=== PATIENT | female | born 1945 | race Caucasian/White ===

== ENCOUNTER 2020-04-29 07:03 | Inpatient (IN) ==
[2020-04-22 17:09] LABS: Appearance,Urine CLEAR; Bilirubin,Urine NEG (NEG); Color,Urine YELLOW; Culture Indicated,Urine NO; Glucose,Urine (UA) NEGATIVE (NEG); Ketones,Urine NEG (NEG); Leukocyte Esterase,Urine NEG /uL (NEG); Nitrate,Urine NEG (NEG); Protein,Urine NEG (NEG); Specific Gravity,Urine 1.015 (1.000-1.035); Urine Blood NEG mg/dL (<0.03)
[2020-04-22 19:58] LABS: Basophils # (Auto) 0.03 K/mcL (0.00-0.30); Basophils % (Auto) 0.6 % (0.0-2.0); Eosinophils # (Auto) 0.13 K/mcL (0.00-0.70); Eosinophils % (Auto) 2.5 % (0.0-7.0); Hematocrit 26.6 % (34.1-44.9); Hemoglobin 9.4 g/dL (11.2-15.7); Lymphocytes # (Auto) 1.39 K/mcL (1.50-4.80); Lymphocytes % (Auto) 27.2 % (15.5-49.0); Mean Cell Volume 104.3 fL (80.0-100.0); Mean Corpuscular HGB Conc 35.3 g/dL (31.0-36.0); Mean Platelet Volume 10.6 fL (7.4-10.4); Monocytes # (Auto) 0.34 K/mcL (0.10-0.90); Monocytes % (Auto) 6.7 % (1.0-12.0); Platelet Count 248 K/mcL (140-440); RBC 2.55 M/mcL (3.59-5.38); WBC 5.1 K/mcL (4.50-11.00)
[2020-04-22 20:00] LABS: Blood Urea Nitrogen 17 mg/dl (8-23); Calcium 9.4 mg/dl (8.6-10.4); Carbon Dioxide 25 mmol/L (22-30); Chloride 101 mmol/L (96-108); Glomerular Filtration Rate 89; Glucose 130 mg/dL (70-105)
[~2020-04-29 07:03] MED LIST: 0.9 % SODIUM CHLORIDE 9 ML, KETOROLAC 30 MG, ROPIVACAINE HCL/PF 49.5 ML, EPINEPHrine 0.... IJ SCH; ACETAMINOPHEN 500 MG TABLET PO SCH; CELECOXIB 200 MG CAPSULE PO SCH; IPRATROPIUM/ALBUTEROL 3 ML AMPUL.NEB NEB PRN; PREGABALIN 75 MG CAPSULE PO SCH; SCOPOLAMINE 1 PATCH PATCH TOPICAL PRN; ceFAZolin 2 GM in DEXTROSE 5% IN WATER 50 ML IV SCH; oxyCODONE 10 MG TAB.ER.12H PO SCH
[2020-04-29] MEDS ORDERED: 0.9 % SODIUM CHLORIDE 250 ML IV SCH (07:30)
[2020-04-29] MEDS ORDERED: ROPIVACAINE HCL/PF 20 ML VIAL IJ ONE (09:16)
[2020-04-29] MEDS ORDERED: fentaNYL 250 MCG/5 ML VIAL IV ONE (09:16)
[2020-04-29] MEDS ORDERED: PHENYLEPHRINE 10 MG/ML VIAL IV ONE (09:16)
[2020-04-29] MEDS ORDERED: SUCCINYLCHOLINE 20 MG/ML ML IV ONE (09:16)
[2020-04-29] MEDS ORDERED: PROPOFOL 200 MG/20 ML VIAL IV ONE (09:16)
[2020-04-29] MEDS ORDERED: HYDROmorphone 1 MG/ML SYRINGE IV ONE (09:16)
[2020-04-29] MEDS ORDERED: TRANEXAMIC ACID 1,000 MG/10 ML VIAL IV ONE ×3 (09:16→12:09)
[2020-04-29] MEDS ORDERED: KETAMINE 100 MG/ML ML IV ONE (09:16)
[2020-04-29] MEDS ORDERED: DEXAMETHASONE 10 MG/ML VIAL IV ONE (09:16)
[2020-04-29] MEDS ORDERED: ONDANSETRON 4 MG/2 ML VIAL IV ONE (09:16)
[2020-04-29] MEDS ORDERED: LIDOCAINE HCL/PF 100 MG/5 ML SYRINGE IV ONE (09:16)
[2020-04-29] MEDS ORDERED: GLYCOPYRROLATE 0.2 MG/ML VIAL IV ONE (09:16)
[2020-04-29] MEDS ORDERED: GENTAMICIN SULFATE 800 MG/20 ML VIAL IR ONE (09:46)
[2020-04-29] MEDS ORDERED: NALOXONE HCL 0.4 MG/ML VIAL IV PRN (10:09)
[2020-04-29] MEDS ORDERED: IPRATROPIUM/ALBUTEROL 3 ML AMPUL.NEB NEB PRN (10:09)
[2020-04-29] MEDS ORDERED: LACTATED RINGERS 250 ML IV PRN (10:09)
[2020-04-29] MEDS ORDERED: FLUMAZENIL 0.1 MG/ML ML IV PRN (10:15)
[2020-04-29] MEDS ORDERED: LACTATED RINGERS 1,000 ML IV SCH (10:15)
[2020-04-29] MEDS ORDERED: METHOCARBAMOL 1,000 MG/10 ML VIAL IV PRN (10:15)
[2020-04-29] MEDS ORDERED: METOPROLOL TARTRATE 5 MG/5 ML VIAL IV PRN (10:15)
[2020-04-29] MEDS ORDERED: ACETAMINOPHEN 325 MG TABLET PO PRN (10:37)
[2020-04-29] MEDS ORDERED: HYDROmorphone 1 MG/ML SYRINGE IV PRN (10:37)
[2020-04-29] MEDS ORDERED: BISACODYL 10 MG SUPP.RECT PR PRN (10:37)
[2020-04-29] MEDS ORDERED: FLEETS ADULT ENEMA PR PRN (10:37)
[2020-04-29] MEDS ORDERED: BENZOCAINE/MENTHOL 1 LOZENGE PO PRN (10:37)
[2020-04-29] MEDS ORDERED: oxyCODONE/APAP 5/325MG TABLET PO PRN (10:37)
[2020-04-29] MEDS ORDERED: POLYETHYLENE GLYCOL 3350 17 GM PACKET PO PRN (10:37)
[2020-04-29] MEDS ORDERED: MAGNESIUM HYDROXIDE 30 ML ORAL.SUSP PO PRN (10:37)
[2020-04-29] MEDS ORDERED: TEMAZEPAM 15 MG CAPSULE PO PRN (10:37)
--- NOTE | 2020-04-29 10:37 | Brief Operative Note ---
Date of procedure: 04/29/20 Pre-op diagnosis: Right shoulder rca Post-op diagnosis: same Procedure: Right shoulder reverse tsa with bicep tenodesis Grafts/Implants: Yes Anesthesia: GETA Complications Description: 04/29/20 10:36 none Surgeon: Luciano Bourgeois Steel Die Printer: Ervin Lemon Estimated blood loss (cc): 120 Specimens Removed/Pathology: none sent Condition: stable Disposition: PACU
--- NOTE | 2020-04-29 10:49 | Discharge Summary ---
Ortho Discharge - TSA - Patient Instructions Diet: Regular Diet Activity: activity as tolerated, weight bearing as tolerated Total Shoulder Protocol: Leave immobilizer in place except for bathing and ROM. Abduction pillow. Continue to wear sling until seen by physician. Codman Pendulum : These exercises use momentum produced by your body to move your shoulder joint. Bend your knees and shift your weight to your front leg, then back, allowing your arm to swing in the same directions. Using the same technique, alternately shift your weight between your right and left legs, allowing your arm to swing from side to side. These exercises are also performed in counterclockwise and clockwise circular motions. Typically these exercises are performed several times per day, for a set number repetitions or minutes, such as 20 times in a row or 5 minutes at a time. Dressing Care: May shower in 2 days - Follow Up Plan Follow Up Appointments: Ervin Lemon PA-C [Physician Lapidary Apprentice] - 05/17/20 8:10 am Disposition: Home, Self-Care Prognosis: Good Rehab Potential: Good I certify that the patient requires SNF services: No Overall status at discharge: patient is progressing back to baseline - Orders For Discharge Prescriptions: Docusate Sodium [Colace] 100 mg PO BID #60 cap Transmission Status: Pending to [facility] oxyCODONE/APAP [Percocet 5-325 mg] 1 - 2 tab PO Q4HP PRN #60 tab PRN Reason: Pain Level 3-6 Prescription Printed
--- NOTE | 2020-04-29 11:02 | Operative Note ---
DATE OF OPERATION: 04/29/2020 PREOPERATIVE DIAGNOSIS: Right shoulder rotator cuff arthropathy. POSTOPERATIVE DIAGNOSIS: Right shoulder rotator cuff arthropathy. PROCEDURE: Right reverse total shoulder and biceps tenodesis. SURGEON: Luciano Bourgeois M.D. FACILITY SPECIALIST: Ervin Lemon PA-C. The PA's assistance was required for the safe and efficient completion of the entire case. This provider's expertise and technical skill were required throughout the case. The PA assisted with preoperative coordination, intraoperative retraction, wound closure, dressing and splint application, as well as postoperative documentation and care coordination. ANESTHESIA: General LMA anesthesia. COMPLICATIONS: None. DESCRIPTION OF PROCEDURE: The patient was brought to the operating room and put to sleep with general LMA anesthesia. Once asleep, the patient had the right shoulder sterilely prepped and draped in the usual sterile fashion. Timeout was performed, and we confirmed this as the operative site by initials, consent form, and x-rays. Ioban was placed over the skin. Preop antibiotics and tranexamic acid were confirmed given. Once done, we then sterilely prepped and draped the shoulder. We performed a deltopectoral approach to the shoulder, exposing the subscap. It was noted that she had a rotator cuff tear of the supraspinatus into the infraspinatus. Biceps tendon was released. We released the subscap and dislocated the humeral head. This was cut to anatomical length at the anatomical neck at 20 degrees of retroversion, 130-degree inclination. Once this was done, we were able to then place a metal plate to protect the bone which was fairly soft. We subluxed the head posteriorly, released the capsule around the glenoid, and performed a capsular release and placed the pin centrally. We reamed up for a 36 mm sphere. The metaglene was placed with a central screw measuring 32 mm. The peripheral screws measured 36 mm and 28 and 24 mm. A 36 mm glenosphere with 2 mm of offset, 2 mm of eccentricity was placed. We then prepared the humerus, noting that the bone had collapsed somewhat because of the softness of the bone. We tapped into place a stem, size 8. This had a small amount of cement placed on it to help keep it in place while the bone would grow in. Cement was placed into the canal. We were able to tap the size [address] with a neutral poly liner. Once this was done, we were able to reduce the shoulder. This gave excellent reduction. A small amount of bone graft around the greater tuberosity was placed for extra healing because of the compressed bone. We irrigated thoroughly. The tension of the deltoid was slightly tight, but seemed to move very freely through the arc of motion and was stable. We irrigated thoroughly and repaired the biceps. We closed the capsule and fascial layer with #1 Stratafix. Skin was closed with Monocryl and adhesive closure. The patient tolerated this well without complication. DONNIE:sagrario Job ID: [id number] Doc ID: [id number] Luciano Bourgeois MD
[2020-04-29] MEDS: LABETALOL 5 MG/ML ML IV PRN ×3 (11:11→12:00)
[2020-04-29] MEDS ORDERED: LABETALOL 5 MG/ML ML IV ONE (11:13)
[2020-04-29] MEDS ORDERED: hydrALAZINE 20 MG/ML VIAL IV ONE (11:33)
[2020-04-29] MEDS: fentaNYL 100 MCG/2 ML VIAL IV PRN ×2 (11:39→11:55)
[2020-04-29] MEDS ORDERED: fentaNYL 100 MCG/2 ML VIAL IV ONE (11:41)
[2020-04-29] MEDS ORDERED: hydrALAZINE 20 MG/ML VIAL ONE (11:51)
[2020-04-29] MEDS: LACTATED RINGERS 1,000 ML IV SCH ×2 (12:22→23:02)
[2020-04-29] MEDS: KETOROLAC 15 MG/ML VIAL IV PRN ×2 (12:54→21:48)
[2020-04-29] MEDS: ONDANSETRON 4 MG/2 ML VIAL IV PRN ×2 (13:17→17:06)
--- NOTE | 2020-04-29 13:22 | XRay Report ---
CLINICAL INFORMATION: Post-OP Total Shoulder COMPARISON: None. FINDINGS: Total shoulder prostheses is anatomically aligned. No osseous abnormality. Soft tissue swelling and gas seen as expected. Mild chronic acromioclavicular degeneration noted. IMPRESSION: Total shoulder prostheses in anatomic alignment. Interpreted and Authenticated by: Robin Diez 04/29/20
[2020-04-29] MEDS: 0.9 % SODIUM CHLORIDE 10 ML SYRINGE IV SCH ×2 (13:30→22:11)
[2020-04-29] MEDS: ceFAZolin 1 GM VIAL IV SCH ×2 (16:31→23:03)
[2020-04-29] MEDS: OMEPRAZOLE 20 MG CAPSULE PO SCH (16:48)
[2020-04-29] MEDS ORDERED: MELATONIN 3 MG TABLET PO SCH (21:00)
[2020-04-29] MEDS ORDERED: SENNOSIDES 1 TABLET PO SCH (21:00)
[2020-04-29] MEDS: DOCUSATE SODIUM 100 MG CAPSULE PO SCH (21:48)
[2020-04-30] MEDS: ONDANSETRON 4 MG/2 ML VIAL IV PRN (02:41)
[2020-04-30] MEDS: 0.9 % SODIUM CHLORIDE 10 ML SYRINGE IV SCH (05:17)
[2020-04-30] MEDS: DOCUSATE SODIUM 100 MG CAPSULE PO SCH (08:17)
[2020-04-30] MEDS: OMEPRAZOLE 20 MG CAPSULE PO SCH (08:17)
[2020-04-30] MEDS ORDERED: MULTIVIT,THER IRON,CA,FA & MIN 1 TABLET PO SCH (09:00)
[2020-04-30] MEDS ORDERED: MAGNESIUM OXIDE 400 MG TABLET PO SCH (09:00)
[2020-04-30] MEDS ORDERED: SIMVASTATIN 40 MG TABLET PO SCH (09:00)
--- NOTE | 2020-04-30 09:02 | Orthopedic Progress Note ---
Subjective Patient information: Note initiated : 04/30/20 at 9:01 am Service Date, if different from initiated Date: [] Patient: Queenie Fox 74 y/o F admitted on 04/29/20 for Right Reverse Total Shoulder Arthroplasty. Chief Complaint: [Pt is stable this morning on post operative day 1 without any significant concerns or complaints. Patients vital signs have remained stable. Patients dressing is dry and is grossly intact from a neurova scular and motor standpoint. Patients 10 point ROS is otherwise negative. ] Objective Vital signs: Vital Signs Temp Pulse Pulse Resp BP Pulse Ox 04/30/20 08:00 97.3 F 16 127/53 96 04/30/20 04:00 98.7 F 74 16 132/60 95 04/30/20 00:00 98.3 F 86 16 138/62 94 04/29/20 20:00 98.8 F 50 L 16 104/54 96 04/29/20 18:57 79 150/57 95 04/29/20 16:00 98.1 F 81 18 181/71 97 04/29/20 14:43 81 140/62 98 04/29/20 14:12 85 146/59 93 04/29/20 13:42 80 159/67 92 04/29/20 13:12 77 151/58 97 04/29/20 12:57 75 175/70 95 04/29/20 12:42 74 184/74 97 04/29/20 12:27 97.6 F 73 18 175/58 99 04/29/20 12:20 74 14 180/68 96 04/29/20 12:05 80 12 172/66 04/29/20 11:50 66 14 191/73 100 04/29/20 11:35 69 68 16 195/71 98 04/29/20 11:30 64 16 187/70 98 05 11:25 66 14 169/59 100 05 11:20 63 10 L 191/71 100 04/29/20 11:15 64 10 L 185/64 100 05 11:10 76 10 L 185/64 100 05 11:05 76 10 L 211/73 100 0520 11:00 76 13 190/74 100 05 10:55 80 11 L 162/76 100 05/20 10:50 97.8 F 73 12 131/49 99 Intake and Output 04/29/20 04/30/20 04/30/20 21:59 05:59 13:59 Intake Total 1999 Output Total 975 100 Balance -975 1900 Intake: IV 1600 Lactated Ringers 1,000 ml @ 100 1600 mls/hr IV .Q10H DOMINGO Rx#: [id number] Oral 400 Output: Void Amount 825 100 Emesis 150 Other: Meal Dinner Percent of Meal Consumed 75% Urine Color Bright Yellow Urine Odor Strong Weight 139 lb Intake & Output: Intake & Output 04/29/20 04/30/20 04/30/20 21:59 05:59 13:59 Intake Total 1999 Output Total 975 100 Balance -975 1900 Weight 139 lb Intake: IV 1600 Lactated Ringers 1,000 ml @ 100 1600 mls/hr IV .Q10H DOMINGO Rx#: [id number] Oral 400 Output: Void Amount 825 100 Emesis 150 Other: Meal Dinner Percent of Meal Consumed 75% Urine Color Bright Yellow Urine Odor Strong Incision: Yes healing Incision clean and dry: Yes Dressing: Yes clean Weight bearing status: full Neurological exam IM: Yes motor sensory intact, Yes neurovascular intact Extremities exam IM: Yes Foot pink and warm, Yes neurovascular intact - Labs CBC & BMP: 04/22/20 14:44 04/22/20 14:43 Labs: 04/22/20 14:44 Hgb 9.4 L Hct 26.6 L Assessment and Plan (1) History of reverse total replacement of right shoulder joint The patient has been educated regarding dressing care, Physical Therapy recommendations, home exercises, restrictions, and follow up appointments. The patient has had all necessary DME prescribed. The patient has remained relatively stable during their hospital course. Leave Dermabond patch intact until followup Status: Acute
[2020-05-02] MEDS ORDERED: VITAMIN D3 5,000 UNIT CAPSULE PO SCH (09:00)
== END 2020-04-30 10:46 | disposition home or self-care (01) | DRG 483 ==
LOC: MEDSUR 07:03
PROVIDERS: ADMIT Orthopaedic Surgery; ATTEND Orthopaedic Surgery